=== PATIENT | male | born 1980 | race Caucasian/White ===

== ENCOUNTER 2018-01-20 15:52 | Emergency (ER) | payer OTHER ==
[~2018-01-20] VITALS: Ht 182.9 cm; Wt 99.8 kg
[~2018-01-20 15:52] MED LIST: ACET500 PO; AMOX875 PO; ASPI325EC PO; Bactrim Ds Tab1 EACH PO; CEPH500 PO; CLIN150 PO; CODACE30 PO; CYCL10 PO; Desyrel50 MG PO; HYDACE5 PO; IBU; IBUP600 PO; KETO10 PO; MULVITMINF PO; OXYACE5T PO; OXYACE7.5T PO; PENVK500 PO; Percocet 5-3251 EACH PO; RXOXYACE PO; RXPENVK250 PO; SULTRIDS PO; TRAM50 PO; TYLENOL; Veetids 500500 MG PO; Xanax1 MG PO
[2018-01-20] MEDS ORDERED: PERIDEX15 ML MM (17:55)
[2018-01-20] MEDS ORDERED: Amoxicillin500 M1 PO (17:55)
== END 2018-01-20 18:02 | disposition home or self-care (01) ==
LOC: ER 15:52
DX: K08.89 Other specified disorders of teeth and supporting structures (principal); Z88.5 Allergy status to narcotic agent; Z79.899 Other long term (current) drug therapy; Z79.2 Long term (current) use of antibiotics; Z87.891 Personal history of nicotine dependence
CPT/HCPCS: 99283